=== PATIENT | male | born 1955 | race Caucasian/White ===

== ENCOUNTER 2016-12-09 13:25 | Emergency (ER) | payer OTHER ==
[~2016-12-09] VITALS: Ht 165.1 cm; Wt 72.0 kg
[2016-12-09 13:30] VITALS: Ht 165.1 cm; Wt 72.0 kg
[2016-12-09] MEDS ORDERED: IBUP-1542 PO (14:54)
--- NOTE | 2016-12-09 15:00 | ERD ---
ER Documentation Chief Complaint Date/Time DATE: 12/09/16 TIME: 14:55 Chief Complaint Complains of a laceration to head HPI 61-year-old male presented to ED with laceration on his scalp. Patient stated that he was helping his daughter doing home repairs. He leaned over and lost his balance, hit the top of his head on the concrete wall. He felt slightly dizzy after hitting his head. But denies loss of consciousness. Denies vomiting. Denies any other injuries. Denies prior medical history. Last tetanus was 3-4 years ago. ROS All systems reviewed and are negative except as per history of present illness. Medications Home Meds Active Scripts Ibuprofen* (Motrin*) 600 Mg Tab, 600 MG PO Q6H Y for PAIN AND OR ELEVATED TEMP, #30 TAB Prov:COLIN LIPSCOMB. RESEARCH LAB ASSISTANT 12/09/16 Allergies Allergies: Coded Allergies: No Known Drug Allergy (Verified Allergy, Mild, 03/11/14) PMhx/Soc Medical and Surgical Hx: pt denies Medical Hx Physical Exam Vitals Vital Signs Date Time Temp Pulse Resp B/P Pulse Ox O2 Delivery O2 Flow Rate FiO2 12/09/16 13:30 98.3 85 20 123/71 97 Physical Exam General: Patient is well-developed. Awake, alert, and conversant, in no apparent distress Skin: Warm and dry Head: Normocephalic, without palpable deformities. A 2 cm laceration noted on the crown of the scalp. Eyes: Pupils equal, round, and reactive to light. Extraocular movements intact. No periorbital ecchymosis or step-off Neck: No midline point tenderness, step-off, or deformity to firm palpation of posterior cervical spine. Trachea midline. Carotids equal. No masses. No JVD. Full range of motion of the neck without limitation or pain Chest: No surface trauma. Nontender without crepitus or deformity. No palpable subcutaneous air. Lungs have good tidal volume, lungs clear to auscultate bilaterally Heart: Regular rate and rhythm. No murmur, rub, or gallop Extremities: No surface trauma. Full range of motion without limitation or pain. Good strength in all extremities. Sensation to light touch intact. All peripheral pulses are intact and equal Neuro: Alert and oriented 4, GCS 15, cranial nerves II through XII intact. Motor and sensory exam is nonfocal. Reflexes are symmetric Procedures/MDM Procedure note: laceration repair Verbal consent was obtained for the laceration repair. The wound was copiously irrigated. The area was explored under a bloodless field. No foreign body, deep structure or tendon involvement was noted. Closure was achieved with 2 greg. Good cosmetic and hemostatic results were obtained with the closure. The wound was then cleaned and a dressing was applied. TDap up-to-date, not given to the. Patient advised to follow-up in the ED in 2 days for wound check. Patient did not lose consciousness, did not have any vomiting. Low risk for intracranial injury. I do not feel head CT is warranted. Patient is advised to follow-up with primary care provider in 2-3 days or return to ED if there is any worsening symptoms such as vomiting or increased lethargy Disclaimer: Inadvertent spelling and grammatical errors are likely due to EHR/ dictation software use and do not reflect on the overall quality of patient care. Also, please note that the electronic time recorded on this note does not necessarily reflect the actual time of the patient encounter. Departure Diagnosis: Primary Impression: Laceration Condition: Stable Patient Instructions: Laceration, Scalp Referrals: ESTRELLA ADAMS (PCP) Additional Instructions: Return to this facility in 2 DAYS for a follow-up exam.Return sooner if your condition worsens. Follow up with your physician to remove the stitches:For Face wounds 5-7 days.For Elsewhere on the body 7-10 days. COLIN LIPSCOMB NP Dec 09, 2016 15:00
== END 2016-12-09 15:19 | disposition home or self-care (01) ==
LOC: FTE 13:25
DX: S01.01XA Laceration without foreign body of scalp, initial encounter (principal); W22.8XXA Striking against or struck by other objects, initial encounter; Y92.9 Unspecified place or not applicable
CPT/HCPCS: 12001; Z7502

== ENCOUNTER 2016-12-12 11:17 | Emergency (ER) | payer OTHER ==
[~2016-12-12] VITALS: Ht 165.1 cm; Wt 73.5 kg
[~2016-12-12 11:17] MED LIST: IBUP-1542 PO
[2016-12-12 11:19] VITALS: Ht 165.1 cm; Wt 73.5 kg
--- NOTE | 2016-12-12 12:38 | ERD ---
ER Documentation Chief Complaint Date/Time DATE: 12/12/16 TIME: 12:31 Chief Complaint PT here for greg removal from head LAC. HPI 61-year-old male coming in for a wound check of greg on his head. Patient fell into a concrete wall 3 days ago and received 2 greg on the vertex of the scalp. There is no dehiscence of the wound. No surrounding erythema. No active bleeding. No purulence. Denies dizziness. Patient is sleeping well and does not have confusion. ROS All systems reviewed and are negative except as per history of present illness. Medications Home Meds Active Scripts Ibuprofen* (Motrin*) 600 Mg Tab, 600 MG PO Q6H Y for PAIN AND OR ELEVATED TEMP, #30 TAB Prov:COLIN LIPSCOMB TOUR GUIDE 12/09/16 Allergies Allergies: Coded Allergies: No Known Drug Allergy (Verified Allergy, Mild, 03/11/14) PMhx/Soc Medical and Surgical Hx: pt denies Medical Hx, pt denies Surgical Hx Hx Alcohol Use: No Hx Substance Use: No Hx Tobacco Use: No Smoking Status: Never smoker Physical Exam Vitals Vital Signs Date Time Temp Pulse Resp B/P Pulse Ox O2 Delivery O2 Flow Rate FiO2 12/12/16 11:19 97.4 72 16 136/80 99 Physical Exam GENERAL: The patient is well-appearing, well-nourished, in no acute distress HEENT: Atraumatic. Conjunctivae are pink. Pupils equal, round, and reactive to light. There is no scleral icterus. Tympanic membranes clear bilaterally. Oropharynx clear. No nystagmus or photophobia. NECK: C-spine is soft and supple. There is no meningismus. There is no cervical lymphadenopathy. No JVD. No bruits. No goiter. CHEST: Clear to auscultation bilaterally. There are no rales, wheezes or rhonchi. HEART: Regular rate and rhythm. No murmurs, clicks, rubs or gallops. No S3 or S4. NEUROLOGIC: Alert and oriented. Cranial nerves II through XII intact. Motor strength in all 4 extremities with 5 out of 5 strength. Sensation grossly intact. Normal speech and gait. Babinski negative. DTR 2+ throughout. SKIN: 2 greg intact the vertex of the scalp. No dehiscence of the wound. No surrounding bleeding or purulent discharge. Procedures/MDM MDM: Wound check does not show signs of infection. Patient is well appearing and neuro exam is within normal limits. Patient will return in 4 days for removal of greg. Patient is discharged with strict ER precautions. Departure Diagnosis: Primary Impression: Suture check Condition: Stable Patient Instructions: Wound Check, Lac F/U (No Infection) Referrals: ESTRELLA ADAMS (PCP) Additional Instructions: FOLLOW UP WITH YOUR PRIMARY CARE PHYSICIAN TOMORROW.Return to this facility if you are not improving as expected. FREDDY TAFOYA PA-C Dec 12, 2016 12:38
== END 2016-12-12 12:10 | disposition home or self-care (01) ==
LOC: FTE 11:17
DX: Z48.02 Encounter for removal of sutures (principal)
CPT/HCPCS: 99281

== ENCOUNTER 2016-12-20 12:18 | Emergency (ER) | payer OTHER ==
[~2016-12-20] VITALS: Ht 157.5 cm; Wt 89.0 kg
[2016-12-20 12:22] VITALS: Ht 157.5 cm; Wt 89.0 kg
--- NOTE | 2016-12-20 12:42 | ERA ---
ER Documentation Chief Complaint Date/Time DATE: 12/20/16 TIME: 12:40 Chief Complaint SCALP GREG REMOVAL HPI 61-year-old male presenting for suture removal. Denies fever, discharge, pain or other complicating factors. Patient has no other complaints and describes no other associated manifestations. Nursing notes have been reviewed and are consistent with history given. ROS All systems reviewed and are negative except as per history of present illness. Medications Home Meds Active Scripts Ibuprofen* (Motrin*) 600 Mg Tab, 600 MG PO Q6H Y for PAIN AND OR ELEVATED TEMP, #30 TAB Prov:COLIN LIPSCOMB. ADVERTISING PHOTOGRAPHER 12/09/16 Allergies Allergies: Coded Allergies: No Known Drug Allergy (Verified Allergy, Mild, 03/11/14) PMhx/Soc Hx Alcohol Use: No Hx Substance Use: No Hx Tobacco Use: No Physical Exam Vitals Vital Signs Date Time Temp Pulse Resp B/P Pulse Ox O2 Delivery O2 Flow Rate FiO2 12/20/16 12:22 98.1 80 18 139/78 99 Physical Exam Const: Well-appearing 61-year-old male in no acute distress Head: 2-1/2 cm vertical laceration on the superior aspect of the scalp along the midline Eyes: Normal Conjunctiva ENT: Normal External Ears, Nose and Mouth. Neck: Full range of motion..~ No meningismus. Resp: Clear to auscultation bilaterally Cardio: Regular rate and rhythm, no murmurs Abd: Soft, non tender, non distended. Normal bowel sounds Skin: No discharge, no tenderness to palpation, no erythema or warmth. Back: No midline or flank tenderness Ext: No cyanosis, or edema Neur: Awake and alert Psych: Normal Mood and Affect Procedures/MDM 61-year-old male presenting for suture removal. No complications. Physical exam was unremarkable for infection. To greg were removed without complication. Neurovascularly intact before and after procedure. I have spoke with the patient regarding their condition and future management. They have verbally responded that they understand their status and treatment plan. The patients vitals are stable, and their current condition is appropriate for discharge. The patient will be given discharge instructions with return precautions. Departure Diagnosis: Primary Impression: Encounter for removal of sutures Condition: Stable Patient Instructions: Staple Removal, No Complication Additional Instructions: Return to emergency department if new symptoms arise. Continue management as previously prescribed. EUGENE POWER PA-C Dec 20, 2016 12:42
== END 2016-12-20 14:24 | disposition home or self-care (01) ==
LOC: FTE 12:18
DX: Z48.02 Encounter for removal of sutures (principal)
CPT/HCPCS: 99281

== ENCOUNTER 2018-10-03 10:17 | Emergency (ER) | payer OTHER ==
[~2018-10-03] VITALS: Ht 165.1 cm; Wt 72.3 kg
[2018-10-03 10:19] VITALS: Ht 165.1 cm; Wt 72.3 kg
[2018-10-03] MEDS ORDERED: PIPER-TAZO 3.375 GM IV (PMX) 100 ML IVPB STA (10:26)
[2018-10-03] MEDS ORDERED: ACETAMINOPHEN 325 MG TAB PO STA (10:26)
[2018-10-03] MEDS ORDERED: SODIUM CHLORIDE 0.9% 1L BAG IV* STA (10:26)
[2018-10-03] MEDS ORDERED: DOCU-144 PO (11:42)
[2018-10-03] MEDS ORDERED: AMOX1TAB10 PO (11:42)
[2018-10-03] MEDS ORDERED: DICY10CA40 PO (11:42)
--- NOTE | 2018-10-03 12:03 | ERD ---
ER Documentation Chief Complaint Chief Complaint lower abdominal pain x 3 days got worse last night HPI This is a very pleasant 63-year-old gentleman who presents to the emergency room with approximate 3 days of left lower quadrant abdominal pain. The pain got worse yesterday evening. The pain is approximately 5 out of 10 and cramping and somewhat sharp. Fevers also noted over this timeframe. He denies any nausea or vomiting. No diarrhea, no recent travel sick contacts or antibiotics. Symptoms are moderate. ROS All systems reviewed and are negative except as per history of present illness. Medications Home Meds Active Scripts Docusate Sodium* (Colace*) 100 Mg Capsule, 100 MG PO TID PRN for CONSTIPATION, #30 CAP Prov:PARESH GEORGE MD 10/03/18 Dicyclomine HCl (Dicyclomine HCl) 10 Mg Capsule, 10 MG PO TID PRN for ABDOMINAL CRAMPING, #20 CAP Prov:PARESH GEORGE MD 10/03/18 Amoxicillin/Potassium Clav (Amox-Clav 875-125 mg Tablet) 875-125 mg Tab, 1 TAB PO BID for 10 Days, #20 TAB Prov:PARESH GEORGE MD 10/03/18 Ibuprofen* (Motrin*) 600 Mg Tab, 600 MG PO Q6H PRN for PAIN AND OR ELEVATED TEMP, #30 TAB Prov:COLIN LIPSCOMB MICA PASTER 12/09/16 Allergies Allergies: Coded Allergies: No Known Drug Allergy (Verified Allergy, Mild, 10/03/18) PMhx/Soc Medical and Surgical Hx: pt denies Medical Hx, pt denies Surgical Hx Hx Alcohol Use: No Hx Substance Use: No Hx Tobacco Use: No Smoking Status: Unknown if ever smoked FmHx Family History: No diabetes Physical Exam Vitals Vital Signs Date Temp Pulse Resp B/P (MAP) Pulse Ox O2 O2 Flow FiO2 Time Delivery Rate 10/03/18 88 20 117/78 100 Room Air 11:54 (91) 10/03/18 100.6 108 24 134/76 99 10:19 (95) Physical Exam General: Well developed, well nourished, no acute distress Head: Normocephalic, atraumatic. Eyes: Pupils equally reactive, EOM intact ENT: Moist mucous membranes Neck: Supple, no lymphadenopathy Respiratory: Lungs clear bilaterally, no distress Cardiovascular: RRR, no murmurs, rubs, or gallops Abdominal: Soft with focal tenderness to left lower quadrant with voluntary guarding : Deferred MSK: No edema, no unilateral swelling, 5/5 strength Neurologic: Alert and oriented, moving all extremities, normal speech, no focal weakness, no cerebellar signs Skin: No rash Psych: Normal mood Result Diagram: 10/03/18 1028 10/03/18 1028 Results 24 hrs Laboratory Tests Test 10/03/18 10:28 10/03/18 10:33 10/03/18 11:05 White Blood Count 13.4 10^3/ul Red Blood Count 4.66 10^6/ul Hemoglobin 13.7 g/dl Hematocrit 42.2 % Mean Corpuscular Volume 90.6 fl Mean Corpuscular Hemoglobin 29.4 pg Mean Corpuscular 32.5 g/dl Hemoglobin Concent Red Cell Distribution Width 12.1 % Platelet Count 247 10^3/UL Mean Platelet Volume 10.8 fl Immature Granulocytes % 0.400 % Neutrophils % 74.1 % Lymphocytes % 16.6 % Monocytes % 7.5 % Eosinophils % 1.0 % Basophils % 0.4 % Nucleated Red Blood Cells % 0.0 /100WBC Immature Granulocytes # 0.060 10^3/ul Neutrophils # 9.9 10^3/ul Lymphocytes # 2.2 10^3/ul Monocytes # 1.0 10^3/ul Eosinophils # 0.1 10^3/ul Basophils # 0.1 10^3/ul Nucleated Red Blood Cells # 0.0 10^3/ul Prothrombin Time 12.1 Sec Prothrombin Time Ratio 0.9 INR International 0.89 Normalized Ratio Activated Partial Thromboplast 31.5 Sec Time Sodium Level 137 mmol/L Potassium Level 4.3 mmol/L Chloride Level 101 mmol/L Carbon Dioxide Level 26 mmol/L Anion Gap 10 Blood Urea Nitrogen 13 mg/dl Creatinine 1.18 mg/dl Est Glomerular Filtrat > 60 mL/min Rate mL/min Glucose Level 129 mg/dl Calcium Level 9.7 mg/dl Total Bilirubin 0.8 mg/dl Direct Bilirubin 0.00 mg/dl Indirect Bilirubin 0.8 mg/dl Aspartate Amino Transf (AST/SGOT) 27 IU/L Alanine 20 IU/L Aminotransferase (ALT/SGPT) Alkaline Phosphatase 56 IU/L Troponin I < 0.012 ng/ml Total Protein 7.6 g/dl Albumin 4.4 g/dl Globulin 3.20 g/dl Albumin/Globulin Ratio 1.37 Lipase 121 U/L POC Venous Lactate 1.4 mmol/L Urine Color STRAW Urine Clarity CLEAR Urine pH 7.0 Urine Specific Gardner 1.003 Urine Ketones NEGATIVE mg/dL Urine Nitrite NEGATIVE mg/dL Urine Bilirubin NEGATIVE mg/dL Urine Urobilinogen NEGATIVE mg/dL Urine Leukocyte Esterase NEGATIVE Vira/ul Urine Microscopic RBC 1 /HPF Urine Microscopic WBC 0 /HPF Urine Hemoglobin 2+ mg/dL Urine Glucose NEGATIVE mg/dL Urine Total Protein NEGATIVE mg/dl Current Medications Medications Dose Sig/Pricila Start Time Status Last (Trade) Ordered Route PRN Stop Time Admin Dose Reason Admin Sodium 2,170 ml BOLUS OVER 2 10/03/18 DC 10/03/18 Chloride HOURS STAT 10:10/03/18 10:43 (NS) IV* 10:29 650 mg ONCE STAT 10/03/18 DC 10/03/18 Acetaminophen PO 10:26 10/03/18 10:44 (Tylenol 10:29 Tab) Piperacillin 100 ml @ ONCE STAT 10/03/18 DC 10/03/18 Sod/ 200 mls/hr IVPB 10:26 10/03/18 10:44 Tazobactam 10:55 Sod Procedures/MDM EKG, MONITORS, & DIAGNOSTIC IMAGING: CT abdomen and pelvis: IMPRESSION: 1. Mild sigmoid diverticulitis with wall thickening, and mild adjacent inflammation. 2. No associated free fluid, free air, abscess, or bowel wall pneumatosis. 3. Ascending transverse colon are unremarkable.. 4. Mild secondary thickening of the bladder. 5. Normal appendix. 6. Right nephrolithiasis. No obstructive uropathy. 7. Left renal cyst 8. Prostatomegaly EKG: I reviewed and interpreted a 12-lead EKG. Rhythm: Normal sinus rhythm ST Changes: No contiguous ST segment elevations T waves: No contiguous T wave inversions Impression: No evidence of acute cardiac ischemia LAB INTERPRETATION: I reviewed the laboratory testing and it shows no evidence of acute process MEDICAL DECISION MAKING: Patient has focal left lower quadrant abdominal pain with a low-grade fever. Signs and symptoms are very consistent with acute diverticulitis. Lower clinical concern for complication such as perforation or abscess will give the patient's fever and focal tenderness and a CT of the abdomen pelvis will be in dicated. Lower concern for alternate process such as acute testicular process or pyelonephritis. ER COURSE: * A code sepsis was initiated but the patient has normal lactic acid. CT imaging confirms acute diverticulitis. The patient's vital signs of since normalized. He is hemodynamically stable and feeling much better. * Patient was given a broad-spectrum antibiotic in the form of Zosyn. At this point I believe a trial of outpatient therapy with oral antibiotic to be reasonable. The patient will be initiated on Augmentin given dose of Zosyn provided in the emergency room setting. Return precautions were discussed and understood and the patient feels comfortable with the plan. CONSULTATION: None DISPOSITION PLAN: The patient does not have an identifiable emergent medical condition that warrants inpatient hospitalization at this time. The patient is deemed safe for discharge with outpatient follow-up. We discussed follow up with the patient's primary care doctor within 24 to 48 hours as needed. We also discussed return to the emergency room for worsening symptoms or worsening condition. Outpatient referral: None required Discharge Medications: Augmentin, Bentyl, Colace Departure Diagnosis: Primary Impression: Acute diverticulitis Additional Impressions: SIRS (systemic inflammatory response syndrome) Abdominal pain Abdominal location: left lower quadrant Qualified Codes: R10.32 - Left lower quadrant pain Condition: Stable Patient Instructions: Diverticulitis Referrals: [facility] YOU HAVE RECEIVED A MEDICAL SCREENING EXAM AND THE RESULTS INDICATE THAT YOU DO NOT HAVE A CONDITION THAT REQUIRES URGENT TREATMENT IN THE EMERGENCY DEPARTMENT. FURTHER EVALUATION AND TREATMENT OF YOUR CONDITION CAN WAIT UNTIL YOU ARE SEEN IN YOUR DOCTORS OFFICE WITHIN THE NEXT 1-2 DAYS. IT IS YOUR RESPONSIBILITY TO MAKE AN APPOINTMENT FOR FOLOW-UP CARE. IF YOU HAVE A PRIMARY DOCTOR --you should call your primary doctor and schedule an appointment IF YOU DO NOT HAVE A PRIMARY DOCTOR YOU CAN CALL OUR PHYSICIAN REFERRAL HOTLINE AT IF YOU CAN NOT AFFORD TO SEE A PHYSICIAN YOU CAN CHOSE FROM THE FOLLOWING [facility] CLINICS [facility] [address] [facility] [address] [facility] [facility] [address] [facility] [address] [facility] [address] [facility]. [facility] [address] [facility]. [facility] YOU HAVE RECEIVED A MEDICAL SCREENING EXAM AND THE RESULTS INDICATE THAT YOU DO NOT HAVE A CONDITION THAT REQUIRES URGENT TREATMENT IN THE EMERGENCY DEPARTMENT. FURTHER EVALUATION AND TREATMENT OF YOUR CONDITION CAN WAIT UNTIL YOU ARE SEEN IN YOUR DOCTORS OFFICE WITHIN THE NEXT 1-2 DAYS. IT IS YOUR RESPONSIBILITY TO MAKE AN APPOINTMENT FOR FOLOW-UP CARE. IF YOU HAVE A PRIMARY DOCTOR --you should call your primary doctor and schedule and appointment IF YOU DO NOT HAVE A PRIMARY DOCTOR YOU CAN CALL OUR PHYSICIAN REFERRAL HOTLINE AT . IF YOU CAN NOT AFFORD TO SEE A PHYSICIAN YOU CAN CHOSE FROM THE FOLLOWING [facility] INSTITUTIONS: [facility] [id number] [place] [id number] [facility] [address] [place], [place] [id number] [place] [address] + [facility] [address] [place] [address] Additional Instructions: Call your primary care doctor TOMORROW for an appointment during the next 1 WEEK.Tell the company secretary that you were referred from this facility.See the doctor sooner or return here if your condition worsens before your appointment time. PARESH GEORGE MD Oct 03, 2018 12:03
[2018-10-03 13:32] VITALS: BP 122/72; PULSE 88; RESP 18
== END 2018-10-03 13:35 | disposition home or self-care (01) ==
LOC: E/R 10:17
DX: K57.92 Diverticulitis of intestine, part unspecified, without perforation or abscess without bleeding (principal); R65.10 Systemic inflammatory response syndrome (SIRS) of non-infectious origin without acute organ dysfunction
CPT/HCPCS: 36415; 74176; 80053; 81001; 83605; 83690; 84484; 85025; 85610; 85730; 87040; 87086; 93005; 96374; J2543; J7030; Z7502; Z7610; A4310